=== PATIENT | male | born 1975 | race Two or more races ===

== ENCOUNTER 2020-08-09 15:11 | Emergency (ER) | payer OTHER ==
[~2020-08-09] VITALS: Ht 170.2 cm; Wt 116.7 kg
[2020-08-09 15:18] VITALS: BP 127/94
[2020-08-09] MEDS ORDERED: LIDOCAINE-MPF 1%, 5ML ONE (15:33)
[2020-08-09] MEDS ORDERED: DIPH,PERTUSS(ACELL),TET VAC/PF 0.5 ML IM-VACC ONE ×2 (15:35→16:00)
[2020-08-09] MEDS ORDERED: NEOSPORIN OINT. PKT 1 PACKET ONE (15:47)
[2020-08-09] MEDS ORDERED: LIDOCAINE-MPF 1%, 5ML INFIL ONE (16:00)
== END 2020-08-09 17:06 | disposition home or self-care (01) ==
LOC: ED 15:45
DX: S61.214A Laceration without foreign body of right ring finger without damage to nail, initial encounter (principal); K21.9 Gastro-esophageal reflux disease without esophagitis; Z79.899 Other long term (current) drug therapy; X58.XXXA Exposure to other specified factors, initial encounter; Y93.89 Activity, other specified; Y92.89 Other specified places as the place of occurrence of the external cause; Y99.8 Other external cause status
CPT/HCPCS: 12041; 90471; 90715; 99284